=== PATIENT | male | born 1975 | race Caucasian/White ===

== ENCOUNTER → 2021-11-01 08:04 | Outpatient (BNVA) | payer MEDICAID, SELFPAY | PROVIDERS: PCP Student in an Organized Health Care Education/Training Program; Visit Provider Orthopaedic Surgery | DX: M25.641 Stiffness of right hand, not elsewhere classified (principal); M25.642 Stiffness of left hand, not elsewhere classified; G56.01 Carpal tunnel syndrome, right upper limb; R20.0 Anesthesia of skin; R20.2 Paresthesia of skin; Z98.890 Other specified postprocedural states | CPT/HCPCS: 99202 ==

== ENCOUNTER 2021-11-27 09:40 | Day surgery (SDC) | payer MEDICAID, SELFPAY ==
[2021-11-27 10:01] VITALS: BP 139/88; PULSE 69; RESP 18; TEMP 36.4; O2SAT 96
[2021-11-27 10:02] VITALS: BMI 20.2
--- NOTE | 2021-11-27 10:16 | MHC.SHP ---
Pre-Procedural Eval Section A Date of Service: 11/27/21 The patient is an INPATIENT: No Changes since office visit: No Cold of Flu in the past 2 weeks, No New Medical Problems, No Changes in Medication and No Patient answered all questions The History & Physical has been completed within 30 days and I have reviewed it.: Yes Section B Chief Complaint: Carpal tunnel syndrome, right upper limb Allergies: Allergies Allergy/AdvReac Type Severity Reaction Status Date / Time No Known Allergies Allergy Verified 11/27/21 09:51 Plan I have reviewed the history and physical and performed a pertinent physical examination on my patient. No changes have occurred unless specified.
--- NOTE | 2021-11-27 10:16 | W.PM.OPN ---
Operative Note Operative Note Date of Service: 11/27/21 Narrative: Preop diagnosis: 1. right Carpal tunnel syndrome Postop diagnosis: same Procedure: 1. right Carpal tunnel release Surgeon: Angie Shook MD Anesthesia: local block using 1% lidocaine with epinephrine Findings: Thickened transverse carpal ligament. EBL: Less than 5 mL Specimens: None Complications: None Disposition: Brought to recovery room in stable condition Plan: Follow-up for 10-14 days for wound check and suture removal Indications: The patient is 46 years old, with right carpal tunnel syndrome that has been unresponsive to nonoperative management. The risks and benefits of operative treatment including but not limited to risk of damage to blood vessels, nerves, tendons, infection, persistent pain, persistent symptoms, or possible need for additional surgery were discussed with the patient and the patient wishes to proceed with surgery. Procedure: Once consent was obtained a local block was performed using a combination of 1% lidocaine with epinephrine. The patient was then brought back to the operating suite and placed on the operative table in supine position. A tourniquet was applied to the proximal aspect of the right upper extremity and the limb was prepped and draped in a standard surgical fashion. Once assured that we had a good block, a 2.0 cm longitudinal incision was made centered over the carpal tunnel. The incision was made through the skin to the subcutaneous tissues using a #15 blade. Dissection was made down to the level of the transverse carpal ligament with care being taken to protect the palmar cutaneous nerve. Once the transverse carpal ligament was clearly visualized, a longitudinal incision was made in the transverse carpal ligament 1st using a #15 blade, then using tenotomy scissors under direct visualization. Care was taken to look for and protect the motor branch of the median nerve when seen in this area. Once satisfied with our carpal tunnel release the wound was copiously irrigated with normal saline and hemostasis was obtained with a brief period of local pressure. The skin edges were reapproximated with some 5.0 nylon suture material and a sterile dressing was applied. The patient appears to have tolerated the procedure well and with no complications. All digits were well vascularized at the conclusion of the case.
[2021-11-27 12:49] VITALS: BP 138/86; PULSE 76; RESP 16; TEMP 36.6; O2SAT 98
== END 2021-11-27 12:51 | disposition home or self-care (01) ==
PROVIDERS: PCP Student in an Organized Health Care Education/Training Program; Visit Provider Orthopaedic Surgery
PROC: (CPT 64721; principal; 2021-11-27 11:30)
DX: G56.01 Carpal tunnel syndrome, right upper limb (principal); R20.0 Anesthesia of skin; M25.641 Stiffness of right hand, not elsewhere classified; F90.9 Attention-deficit hyperactivity disorder, unspecified type; F41.9 Anxiety disorder, unspecified
CPT/HCPCS: 64721; J0171

== ENCOUNTER 2023-04-03 10:59 | Outpatient (AMB) | payer MEDICAID, SELFPAY ==
--- NOTE | 2023-04-03 11:10 | MHC.OFFVIS ---
Intake Vital Signs 04/03/23 11:17 Height 5 ft 11 in Weight 155 lb BMI 21.6 Intake Visit Reasons: New Prob- B/L Hand pain ?tendonitis Intake Note: Kj 47 yr old male presents today for a new Problem visit for bilateral hand pain. States his right hand is worse. Pain is mainly on his palmar aspect of hand. States his tendons get hard and gets sharp pain in hand. States he was seen with his PCP on 02/04/23 who Rx'd him Prednisone with good result/improvements however it returns and limits him in making a close fist. Hx of Right hand CTR 11/27/21 with AR and left hand CTR approx around . States his his PCP diagnosed him with tendonitis. States it worse in the mornings. Allergies No Known Allergies Allergy (Verified 04/03/23 11:11) HPI New Prob- B/L Hand pain ?tendonitis HPI Details Kj is a 47 year old left hand dominant man who returns with complaints of bilateral hand pain & stiffness. His hands are painful and stiff enough that he is unable to make a fist at times, or unable to perform a push-up. He complains of some hard nodules, 1 in each hand. Most of the pain he complains of is more in the joints of the fingers, particularly when trying to bring them into a fist. He complains of pain that he says radiates into his back from his hands at times. He says his symptoms improved on PO Prednisone & cyclobenzaprine which was given to him by his PCP. He has not attended OT hand therapy but has been performing hand exercises at home using a ball. He has a hx of a right carpal tunnel release on 11/27/21 and had issues with hand stiffness following surgery. He says his sensation improved following surgery. [facility] Medical History ADHD Anxiety Social History Current occupational status: unemployed Current occupation: left hand Review of Systems Const All systems reviewed & are unremarkable except as noted in HPI and below Physical Exam Vital Signs: BMI result Body Mass Index 21.6 Const General: no acute distress and alert Orientation/consciousness: patient oriented x3 Neuro General: patient oriented x3 Extrem Other: Evaluation of Bilateral Upper Extremity: The patient is alert, oriented, and in no acute distress Neuro: Median, Ulnar, Radial nerves motor and sensory intact and sensation is normal to the tips of all digits Vascular: Cap refill brisk ROM: When attempting to make a fist, with his thumb out of the way, he can bring his fingertips ~1-2cm from the thenar eminence bilaterally He can get his hands flat on the table. He has a flexion contracture of the left ring finger DIP joint, likely from an old injury. No active or passive DIP joint flexion We worked on ROM exercises for >15 minutes in clinic. 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 Bilateral hand stiffness Particularly when trying to make a fist I educated him about this condition I discussed operative and non-operative treatment options We worked on ROM exercises for >15 minutes in clinic. He will work on ROM exercises at home, not using his squeeze ball as he has been previously I ordered OT hand therapy to work on ROM and normalizing hand function Consider pre clinic radiographs of his hands at next visit He can follow up prn. 2. Right hand Dupuytrens disease Mild Dupuytrens cord in his right hand, crossing the palmar aspect of the 1st webspace No contractures 3. Left hand Dupuytrens disease Dupuytrens nodule in line with his left ring finger No contractures 4. Left ring finger DIP joint flexion contracture Possibly from an old injury, unknown and asymptomatic I educated him about this No intervention indicated at this time Please note that greater than 40 minutes was spent with this patient going over the history, evaluating the patient and radiographs, formulating possible treatment options, discussing them with the patient, and documenting the visit. Scribed for Angie Shook MD by Yovani Solares, medical care evaluation specialist, on 04/03/23 at 11:40 AM, EST. 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
[2023-04-03 11:17] VITALS: BMI 21.6
== END 2023-04-03 11:52 | disposition home or self-care (01) ==
PROVIDERS: PCP Student in an Organized Health Care Education/Training Program; Visit Provider Orthopaedic Surgery
DX: M72.0 Palmar fascial fibromatosis [Dupuytren] (principal)
CPT/HCPCS: 97140; 99214

== ENCOUNTER → 2023-04-03 10:59 | Outpatient (BNVA) | payer MEDICAID, SELFPAY | PROVIDERS: PCP Student in an Organized Health Care Education/Training Program; Visit Provider Orthopaedic Surgery | DX: M72.0 Palmar fascial fibromatosis [Dupuytren] (principal); M24.542 Contracture, left hand; M25.641 Stiffness of right hand, not elsewhere classified; M25.642 Stiffness of left hand, not elsewhere classified | CPT/HCPCS: 97140; 99212 ==

== ENCOUNTER 2023-12-09 10:01 | Outpatient (REF) | payer MEDICAID, SELFPAY ==
[2023-12-09 14:56] LABS: Alanine Aminotransferase 15 U/L (0-40); Albumin Level 4.4 g/dL (3.5-5.0); Alkaline Phosphatase 62 U/L (39-117); Aspartate Amino Transferase 17 U/L (5-37); Bilirubin Direct 0.2 mg/dL (0.0-0.5); Bilirubin Total 0.7 mg/dL (0.0-1.0); Total Protein 7.2 g/dL (6.5-8.0)
== END 2023-12-09 10:02 | disposition home or self-care (01) ==
LOC: HO.CHCLDS 10:01
PROVIDERS: Visit Provider Family Medicine
DX: F11.20 Opioid dependence, uncomplicated (principal)
CPT/HCPCS: 36415; 80076